=== PATIENT | male | born 1965 ===

== ENCOUNTER 2018-05-15 14:51 | Emergency (ER) | payer BC, SELFPAY ==
[2018-05-15] MEDS ORDERED: Bacitracin Zinc 1 Packet ONE (15:33)
== END 2018-05-15 15:51 | disposition home or self-care (01) ==
LOC: SCSER 14:51
DX: S51.852A Open bite of left forearm, initial encounter (principal); I10 Essential (primary) hypertension; F17.210 Nicotine dependence, cigarettes, uncomplicated; W54.0XXA Bitten by dog, initial encounter
CPT/HCPCS: 99283